=== PATIENT | female | born 1985 | race Caucasian/White ===

== ENCOUNTER 2025-07-08 14:26 | Outpatient (CLI) | payer BC | END 2025-07-08 14:27 | disposition home or self-care (01) | LOC: CSHMAMMO 14:26 | PROVIDERS: ATTEND Obstetrics & Gynecology | DX: N63.21 Unspecified lump in the left breast, upper outer quadrant (principal); N60.02 Solitary cyst of left breast | CPT/HCPCS: 77066; G0279 ==